=== PATIENT | male | born 1960 | race Caucasian/White ===

== ENCOUNTER 2021-03-15 08:52 | Outpatient (CLI) | payer BC, SELFPAY ==
--- NOTE | 2021-03-15 09:22 | XR_ITS ---
WS: [id number] Right hip, AP and frog-leg views, 03/15/2021 Clinical Data: LUMBAR BACK PAIN W/RADICULOPATHY/RIGHT SCIATICA Comparison: None. Findings: No fractures or dislocations are seen. The hip joint is intact. There is a prominent acetabular spur. No joint erosion, sclerosis, narrowing or cyst formation is seen. The soft tissues are not remarkabl e. The adjacent pelvis is normal. The right SI joint and the pubic symphysis are unremarkable. XR/XR hip RT 2-3V wo/w pel* [id number] Impression: Mild osteoarthritis of the right hip with acetabular spurring. Tonnis classification: grade 1: sclerosis of femoral head and acetabulum or sli ght joint space narrowing or slight lipping at joint margins
--- NOTE | 2021-03-15 09:22 | XR_ITS ---
WS: [id number] Lumbar spine, 3 views, 03/15/2021 Clinical Data: LUMBAR BACK PAIN W/RADICULOPATHY/RIGHT SCIATICA Comparison: None. Findings: No compression fractures or subluxation is seen. No disc space narrowing is seen. The transverse proc esses and SI joints are normal. There is a slight dextroscoliosis. Osteophytes are present from L2 through L5. XR/XR lumbar spine 2-3V* [id number] Impression: Osteophytes L2-L5.
== END 2021-03-15 08:53 | disposition home or self-care (01) ==
LOC: RAD 09:01
PROVIDERS: PCP Electrodiagnostic Medicine; Visit Provider Electrodiagnostic Medicine
DX: M54.16 Radiculopathy, lumbar region (principal); M54.31 Sciatica, right side; M25.78 Osteophyte, vertebrae
CPT/HCPCS: 72100; 73502

== ENCOUNTER → 2021-03-21 15:47 | Outpatient (BNVA) | payer BC, SELFPAY | PROVIDERS: PCP Electrodiagnostic Medicine; Referring Provider Electrodiagnostic Medicine; Visit Provider Physician Assistant | DX: M54.9 Dorsalgia, unspecified (principal) | CPT/HCPCS: 72120 ==

== ENCOUNTER 2021-05-03 06:00 | Outpatient (RCR) | payer BC, SELFPAY | END 2021-05-26 23:59 | disposition home or self-care (01) | LOC: SPT 06:00 | PROVIDERS: PCP Electrodiagnostic Medicine; Referring Provider Physician Assistant; Visit Provider Physician Assistant | DX: M54.50 Low back pain, unspecified (principal) | CPT/HCPCS: 97110; 97161 ==

== ENCOUNTER 2021-05-27 06:00 | Outpatient (RCR) | payer BC, SELFPAY | END 2021-05-31 23:59 | disposition home or self-care (01) | LOC: SPT 06:00 | PROVIDERS: PCP Electrodiagnostic Medicine; Referring Provider Physician Assistant; Visit Provider Physician Assistant | DX: G89.29 Other chronic pain (principal); M54.50 Low back pain, unspecified | CPT/HCPCS: 97110 ==